=== PATIENT | female | born 1985 | race Two or more races ===

== ENCOUNTER 2021-09-04 14:15 | Inpatient (IN) | payer OTHER ==
[~2021-09-04] VITALS: Ht 162.6 cm; Wt 3.2 kg
[2021-09-28] MEDS ORDERED: PRENATAL DHA200 MG (07:33)
[2021-09-29] MEDS ORDERED: INTEGRA PLUS C1 EAC1 (14:46)
== END 2021-10-01 10:43 | disposition home or self-care (01) | DRG 788 ==
LOC: SURG-SUITE 09-28 06:27 → LDR 09-28 06:27 → SURG-SUITE 09-28 18:52 → LDR 09-29 14:15 → SURG-SUITE 10-01 10:43
PROVIDERS: ADMIT Obstetrics & Gynecology; ATTEND Obstetrics & Gynecology
PROC: 4A1HXCZ Monitoring of Products of Conception, Cardiac Rate, External Approach (ICD-10-PCS; 2021-09-28)
PROC: 10D00Z1 Extraction of Products of Conception, Low, Open Approach (ICD-10-PCS; principal; 2021-09-28 17:30)
DX: O33.8 Maternal care for disproportion of other origin (principal); Z3A.39 39 weeks gestation of pregnancy; Z37.0 Single live birth; Z20.822 Contact with and (suspected) exposure to COVID-19

== ENCOUNTER 2021-09-12 11:54 | Outpatient (CLI) | payer OTHER | END 2021-09-12 13:55 | disposition home or self-care (01) | LOC: NST 11:54 | PROVIDERS: ATTEND Obstetrics & Gynecology Maternal & Fetal Medicine | DX: Z34.83 Encounter for supervision of other normal pregnancy, third trimester (principal) ==

== ENCOUNTER 2021-09-16 08:05 | Outpatient (CLI) | payer OTHER | END 2021-09-16 09:02 | disposition home or self-care (01) | LOC: NST 08:05 | PROVIDERS: ATTEND Obstetrics & Gynecology Maternal & Fetal Medicine | DX: Z34.83 Encounter for supervision of other normal pregnancy, third trimester (principal) ==

== ENCOUNTER → 2021-09-19 | Outpatient (CLI) | payer OTHER | END | disposition home or self-care (01) | LOC: NST 08:07 | PROVIDERS: ATTEND Obstetrics & Gynecology | DX: Z34.83 Encounter for supervision of other normal pregnancy, third trimester (principal) ==

== ENCOUNTER 2021-09-26 08:53 | Outpatient (CLI) | payer OTHER | END 2021-09-26 09:35 | disposition home or self-care (01) | LOC: NST 08:53 | PROVIDERS: ATTEND Obstetrics & Gynecology | DX: Z34.83 Encounter for supervision of other normal pregnancy, third trimester (principal) ==

== ENCOUNTER 2024-08-11 09:30 | Inpatient (IN) | payer OTHER ==
[~2024-08-11] VITALS: Ht 160 cm; Wt 3.2 kg
[~2024-08-11 09:30] MED LIST: INTEGRA PLUS C1 EAC1; PRENATAL DHA200 MG
[2024-08-11 12:05] LABS: HEMATOCRIT 29.3 % (36.0-45.00); HEMOGLOBIN 9.8 g/dL (12.0-15.00); MEAN CELL VOLUME 81.2 fL (80.00-100.00); MEAN CORPUSCULAR HEMOGLOBIN 27.1 pg (27.00-32.0); MEAN CORPUSCULAR HGB CONC 33.3 g/dl (32.0-36.0); PLATELET COUNT 246 K/uL (150-450); RED BLOOD COUNT 3.61 M/uL (4.00-6.00); RED CELL DISTRIBUTION WIDTH 14.8 % (11.5-14.5)
[2024-08-11 12:29] LABS: INR < 0.93; PARTIAL THROMBOPLASTIN TIME 21.7 SECONDS (22.0-34.0); PROTHROMBIN TIME 9.9 SECONDS (9.0-11.5)
[2024-08-11 12:36] LABS: ALBUMIN 2.7 gm/dL (3.4-5.0); BILIRUBIN TOTAL 0.2 mg/dL (0.3-1.2); CALCIUM 9.4 mg/dL (8.5-10.1); CREATININE SERUM 0.61 mg/dL (0.55-1.02); GFR 108.63; GLOBULINA 3.7 G/DL (2.4-3.5); POTASSIUM 4.17 mEq/L (3.5-5.1); TOTAL PROTEIN 6.4 gm/dL (6.4-8.2)
[2024-08-23 09:00] VITALS: BP 129/84
[2024-08-23] MEDS ORDERED: OXYTOCIN 10 UNITS/ML VIAL ONE ×2 (13:02→16:42)
[2024-08-23] MEDS ORDERED: ERYTHROMYCIN BASE OPHT 1GM EACH TUBE OP ONE (13:02)
[2024-08-23] MEDS ORDERED: CEFAZOLIN SODIUM 1,000 MG VIAL ONE (13:12)
[2024-08-23] MEDS ORDERED: CITRIC ACID/SODIUM CITRATE 30 ML BLIST.PACK PO ONE (13:12)
[2024-08-23 14:06] LABS: RH POSITIVE
[2024-08-23] MEDS ORDERED: RINGERS SOLUTION,LACTATED 1,000 ML IV SCH (15:00)
[2024-08-23] MEDS ORDERED: OXYTOCIN 1,000 ML IV ONE (15:00)
[2024-08-23] MEDS ORDERED: MORPHINE SULFATE 4 MG/ML VIAL IV ONE ×2 (15:55→16:25)
[2024-08-23] MEDS ORDERED: SIMETHICONE 125 MG CAPSULE PO SCH (17:00)
[2024-08-23] MEDS ORDERED: GABAPENTIN 300 MG CAPSULE PO SCH (17:00)
[2024-08-23 17:18] VITALS: BP 132/86
[2024-08-23] MEDS ORDERED: PROMETHAZINE HCL 25 MG/ML AMPUL IV SCH (18:00)
[2024-08-23] MEDS ORDERED: ACETAMINOPHEN 500 MG GEL..CAP PO SCH (18:00)
[2024-08-23] MEDS ORDERED: MEPERIDINE HCL/PF 25 MG/ML VIAL IV SCH (18:00)
[2024-08-23] MEDS ORDERED: ONDANSETRON HCL 2 MG/ML VIAL IV SCH (18:00)
[2024-08-24 03:37] VITALS: BP 138/87
[2024-08-24 06:42] LABS: HEMOGLOBIN 9.2 g/dL (12.0-15.00); MEAN CELL VOLUME 80.1 fL (80.00-100.00); MEAN CORPUSCULAR HEMOGLOBIN 27.2 pg (27.00-32.0); MEAN CORPUSCULAR HGB CONC 33.9 g/dl (32.0-36.0); PLATELET COUNT 197 K/uL (150-450); RED BLOOD COUNT 3.38 M/uL (4.00-6.00); RED CELL DISTRIBUTION WIDTH 15.8 % (11.5-14.5)
[2024-08-24] MEDS ORDERED: OxyCODONE HCL 5 MG TABLET (ROXICODONE) PO PRN (08:00)
[2024-08-24 08:14] VITALS: BP 139/78
[2024-08-24] MEDS ORDERED: DOCUSATE SODIUM 100MG CAP PO SCH (09:00)
[2024-08-24 15:56] VITALS: BP 118/76
[2024-08-25] VITALS (13 sets, daily range): BP systolic 113–156; BP diastolic 77–110
[2024-08-25] MEDS ORDERED: MAGNESIUM SULFATE IN WATER 500 ML IV SCH (07:00)
[2024-08-25] MEDS ORDERED: MAGNESIUM SULFATE IN WATER 100 ML IV SCH (07:00)
[2024-08-25] MEDS ORDERED: RINGERS SOLUTION,LACTATED 1,000 ML IV SCH (07:00)
[2024-08-25] MEDS ORDERED: MAGNESIUM SULFATE IN WATER 4 GM/100 ML PIGGYBACK IV ONE (07:09)
[2024-08-25] MEDS ORDERED: MAGNESIUM SULFATE IN WATER 0.04 GM/ML IV.SOLN IV ONE (07:09)
[2024-08-25] MEDS ORDERED: LABETALOL HCL 100 MG TABLET PO ONE (08:17)
[2024-08-25] MEDS ORDERED: LABETALOL HCL 200 MG TABLET PO SCH (09:00)
[2024-08-25 09:38] LABS: PH,URINE 6.5 (5.0-8.0); URINE APPEARANCE Clear; URINE BILIRRUBIN Negative (NEGATIVE); URINE BLOOD Moderate; URINE COLOR Yellow; URINE GLUCOSE Negative (NEGATIVE); URINE KETONE Negative (NEGATIVE); URINE LEUKOCYTE Negative; URINE NITRATE Negative; URINE PROTEIN Negative (NEGATIVE); URINE UROBILINOGEN 0.2 E.U./dl
[2024-08-25 09:39] LABS: URINE BACTERIA 34.2 uL (0.0-1933); URINE EPITHELIAL CELLS 2.3 uL (0.0-38.8); URINE RBC 202.6 uL (0.0-20.8); URINE WBC 8.6 uL (0.0-23.2)
[2024-08-25 09:46] LABS: HEMATOCRIT 27.3 % (36.0-45.00); HEMOGLOBIN 8.8 g/dL (12.0-15.00); MEAN CELL VOLUME 82.1 fL (80.00-100.00); MEAN CORPUSCULAR HEMOGLOBIN 26.4 pg (27.00-32.0); MEAN CORPUSCULAR HGB CONC 32.2 g/dl (32.0-36.0); PLATELET COUNT 206 K/uL (150-450); RED BLOOD COUNT 3.33 M/uL (4.00-6.00); RED CELL DISTRIBUTION WIDTH 15.5 % (11.5-14.5)
[2024-08-25 10:32] LABS: ALBUMIN 2.2 gm/dL (3.4-5.0); BILIRUBIN TOTAL 0.22 mg/dL (0.3-1.2); CALCIUM 8.3 mg/dL (8.5-10.1); CREATININE SERUM 0.54 mg/dL (0.55-1.02); GFR 125.04; GLOBULINA 3.2 G/DL (2.4-3.5); POTASSIUM 3.77 mEq/L (3.5-5.1); TOTAL PROTEIN 5.4 gm/dL (6.4-8.2)
[2024-08-25 10:49] LABS: URINE CAST 0.14 uL (0.0-1.40)
[2024-08-26 03:10] VITALS: BP 122/78
[2024-08-26] MEDS ORDERED: MAGNESIUM SULFATE IN WATER 0.04 GM/ML IV.SOLN IV ONE (03:30)
[2024-08-26 07:23] VITALS: BP 130/87
[2024-08-26 09:00] VITALS: BP 128/88
[2024-08-26] MEDS ORDERED: PNV,CALCIUM 72/IRON/FOLIC ACID 1 TAB TABLET PO SCH (10:48)
[2024-08-26] MEDS ORDERED: FERROUS SULFATE 325 MG TABLET.EC PO SCH (10:48)
[2024-08-26 11:30] VITALS: BP 138/93
[2024-08-26] MEDS ORDERED: OxyCODONE HCL/APAP UD (PERCOCET) PO SCH (13:00)
[2024-08-26 17:58] VITALS: BP 128/84
[2024-08-26 20:00] VITALS: BP 134/83
[2024-08-27] VITALS: BP 114/78
[2024-08-27 09:03] VITALS: BP 138/88
[2024-08-27] MEDS ORDERED: LABETALOL HCL200 MG PO (10:09)
[2024-08-27] MEDS ORDERED: OXYC1TAB9 PO (10:10)
== END 2024-08-27 13:02 | disposition home or self-care (01) | DRG 788 ==
LOC: OB/GYN 08-23 07:00 → O/R 08-23 09:35 → OB/GYN 08-23 15:11
PROVIDERS: Obstetrics & Gynecology Gynecology; ADMIT Obstetrics & Gynecology; ATTEND Obstetrics & Gynecology
PROC: 4A1HXCZ Monitoring of Products of Conception, Cardiac Rate, External Approach (ICD-10-PCS; 2024-08-23)
PROC: 10D00Z1 Extraction of Products of Conception, Low, Open Approach (ICD-10-PCS; principal; 2024-08-23 07:00)
DX: O34.211 Maternal care for low transverse scar from previous cesarean delivery (principal); Z3A.39 39 weeks gestation of pregnancy; Z37.0 Single live birth; O16.4 Unspecified maternal hypertension, complicating childbirth